=== PATIENT | female | born 2000 | race American Indian/Alaskan Native ===

== ENCOUNTER 2018-06-25 13:43 | Inpatient (IN) | payer SELFPAY ==
[2018-06-25 14:59] LABS: Basophils % (Auto) 0.6 % (0.0-1.8); Eosinophils # (Auto) 0.1 K/mm3 (0.0-0.4); Eosinophils % (Auto) 2.3 % (0.0-4.3); Hematocrit 43.9 % (30.3-42.9); Hemoglobin 14.5 gm/dl (10.1-14.3); Lymphocytes # (Auto) 1.1 K/mm3 (1.2-5.4); Lymphocytes % (Auto) 38.4 % (13.4-35.0); Mean Corpuscular HGB Conc 33 % (30-34); Mean Corpuscular Hemoglobin 30 pg (28-32); Mean Corpuscular Volume 90 fl (79-97); Monocytes # (Auto) 0.3 K/mm3 (0.0-0.8); Monocytes % (Auto) 9.7 % (0.0-7.3); Platelet Count 238 K/mm3 (140-440); Red Blood Count 4.91 M/mm3 (3.65-5.03); Red Cell Distribution Width 14.7 % (13.2-15.2)
[2018-06-25 15:14] LABS: Bilirubin,Urine NEG (Negative); Blood,Urine SM (Negative); Color,Urine Yellow (Yellow); Mucus,Urine FEW /HPF; Urobilinogen,Urine < 2.0 mg/dL (<2.0)
[2018-06-25 15:18] LABS: HCG Qualitative,Urine Negative (Negative)
[2018-06-25 15:30] LABS: Alanine Aminotransferase 11 units/L (7-56); Albumin 4.5 g/dL (3.9-5); BUN/Creatinine Ratio 14; Blood Urea Nitrogen 10 mg/dL (7-17); Calcium 9.1 mg/dL (8.4-10.2); Hemolysis Index 13
--- NOTE | 2018-06-25 18:19 | Emergency Department Report ---
ED Headache HPI - General Chief Complaint: Eye Problems Stated Complaint: OPTIC NERVE SWELLING Time Seen by Provider: 06/25/18 17:34 Source: patient Exam Limitations: no limitations - History of Present Illness Initial Comments: 17 year old female with no significant past medical history presents complaining of headaches and bilateral eye pain 1 week. Patient has pain behind both eyes which is fairly constant but decreased in intensity after taking ibuprofen. Patient also wears corrective lenses and states for several weeks her vision has been decreasing. She saw an sintering press operator today. She presents with the paperwork stating that she has optic nerve edema to both eyes , decreased color vision, with vision OD 20/20 OS 20/30. She was sent to the ER due's concerns of headache in the setting of papilledema. Patient states headache is rated 6/10 in intensity currently she does not require any pain medication. She denies nausea, vomiting, focal weakness, focal numbness, or light sensitivity. She has not had history of headaches prior to this week. Allergies/Adverse Reactions: Allergies No Known Allergies Allergy (Verified 06/25/18 14:38) Home Medications: Ambulatory Orders No Known Home Medications [No Reported Home Medications] 06/25/18 ED Review of Systems ROS: Stated complaint: OPTIC NERVE SWELLING Other details as noted in HPI Comment: All other systems reviewed and negative ED Past Medical Hx - Past Medical History Previous Medical History?: No - Surgical History Past Surgical History?: No - Social History Smoking Status: Never Smoker Substance Use Type: None - Medications Home Medications: Home Medications Medication Instructions Recorded Confirmed Last Taken Type No Known Home Medications [No 06/25/18 06/25/18 Unknown History Reported Home Medications] ED Physical Exam - General Limitations: No Limitations - Other Other exam information: General: No limitations, patient is alert in no acute distress Head exam: Atraumatic, normocephalic Eyes exam: Normal appearance, pupils equal reactive to light, extraocular movements intact ENT: Moist mucous membrane Neck exam: Normal inspection, full range of motion, no meningismus nontender Respiratory exam: Clear to auscultation bilateral, no wheezes, rales, crackles Cardiovascular: Normal rate and rhythm, normal heart sounds Abdomen: Soft, nondistended, and nontender, with normal bowel sounds, no rebound, or guarding Extremity: Full range of motion normal inspection no deformity Back: Normal Inspection, full range of motion, no tenderness Neurologic: Alert, oriented x3, cranial nerves intact, no motor or sensory deficit, [id number] function intact Psychiatric: normal affect, normal mood Skin: Warm, dry, intact ED Course Vital Signs 06/25/18 06/25/18 14:39 20:59 Temperature 98.3 F 98.6 F Pulse Rate 79 84 Respiratory 16 16 Rate Blood Pressure 119/60 Blood Pressure 103/66 [Right] O2 Sat by Pulse 100 Oximetry - Consultations Consultation #1: 06/25/18 19:42 case d/w Dr Glover with tele neuro. States pt needs admission for MRI, Interventional radiology or neuro LP for pressure measurement and therapeutic drainage if elevated. Diamox if need. She states this can be done tomorrow and she does not need a stat MRI tonight. MRI is not available tonight but is available tomorrow 8a-12p. Pt will be admitted for further workup ED Medical Decision Making - Lab Data Result diagrams: 06/25/18 14:46 06/25/18 14:46 Lab Results 06/25/18 06/25/18 06/25/18 Range/Units 14:46 14:46 14:57 WBC 2.9 L (4.5-11.0) K/mm3 RBC 4.91 (3.65-5.03) M/mm3 Hgb 14.5 H (10.1-14.3) gm/dl Hct 43.9 H (30.3-42.9) % MCV 90 (79-97) fl MCH 30 (28-32) pg MCHC 33 (30-34) % RDW 14.7 (13.2-15.2) % Plt Count 238 (140-440) K/mm3 Lymph % (Auto) 38.4 H (13.4-35.0) % [place] % (Auto) 9.7 H (0.0-7.3) % Eos % (Auto) 2.3 (0.0-4.3) % Baso % (Auto) 0.6 (0.0-1.8) % Lymph # 1.1 L (1.2-5.4) K/mm3 [place] # 0.3 (0.0-0.8) K/mm3 Eos # 0.1 (0.0-0.4) K/mm3 Baso # 0.0 (0.0-0.1) K/mm3 Seg Neutrophils % 49.0 (40.0-70.0) % Seg Neutrophils # 1.4 L (1.8-7.7) K/mm3 Sodium 141 (137-145) mmol/L Potassium 4.0 (3.6-5.0) mmol/L Chloride 104.4 (98-107) mmol/L Carbon Dioxide 25 (22-30) mmol/L Anion Gap 16 mmol/L BUN 10 (7-17) mg/dL Creatinine 0.7 (0.7-1.2) mg/dL Estimated GFR > 60 ml/min BUN/Creatinine Ratio 14 % Glucose 100 (65-100) mg/dL Calcium 9.1 (8.4-10.2) mg/dL Total Bilirubin < 0.20 (0.1-1.2) mg/dL AST 16 (5-40) units/L ALT 11 (7-56) units/L Alkaline Phosphatase 55 (35-129) units/L Total Protein 8.1 (6.3-8.2) g/dL Albumin 4.5 (3.9-5) g/dL Albumin/Globulin Ratio 1.3 % Urine Color Yellow (Yellow) Urine Turbidity Clear (Clear) Urine pH 5.0 (5.0-7.0) Ur Specific [place] 1.029 (1.003-1.030) Urine Protein 30 mg/dl (Negative) mg/dL Urine Glucose (UA) Neg (Negative) mg/dL Urine Ketones Neg (Negative) mg/dL Urine Blood Sm (Negative) Urine Nitrite Neg (Negative) Urine Bilirubin Neg (Negative) Urine Urobilinogen < 2.0 (<2.0) mg/dL Ur Leukocyte Esterase Neg (Negative) Urine WBC (Auto) 2.0 (0.0-6.0) /HPF Urine RBC (Auto) 2.0 (0.0-6.0) /HPF U Epithel Cells (Auto) 2.0 (0-13.0) /HPF Urine Mucus Few /HPF Urine HCG, Qual Negative (Negative) - Radiology Data Radiology results: report reviewed ct head: naf, mild sinusitis - Medical Decision Making deshpande x 1 week with b/l papillary edema case d/w neuro admission for MRI plus diagnosist/therapeutic LP +/- Diamox depending on findings hospitalist informed for admission at 9:15 upon call back - Differential Diagnosis pseudotumor cerebral, migraines, MS Critical Care Time: No Critical care attestation.: If time is entered above; I have spent that time in minutes in the direct care of this critically ill patient, excluding procedure time. ED Disposition Clinical Impression: Headache, Papilledema Disposition: OP ADMIT IP TO THIS HOSP Is pt being admited?: Yes Condition: Stable Time of Disposition: 20:40 (hospitalist)
--- NOTE | 2018-06-25 19:04 | Cat Scan Report ---
FINAL REPORT PROCEDURE: CT head without contrast. TECHNIQUE: Computerized tomography of the head was performed without contrast material. HISTORY: Headache, optic nerve edema. COMPARISON: No prior studies are available for comparison. FINDINGS: The ventricles are normal in size. The heredia matter and white matter appear normal. There is a dilated perivascular space of [place] near the right basal ganglia. There are no mass lesions. There is no intracranial hemorrhage. The calvarium appears intact. The mastoid air cells are clear. There is mucosal thickening in a right posterior ethmoid air cell. There is mucosal thickening in the left sphenoid sinus. IMPRESSION: Normal study of the brain. Mild sinusitis as described.
[2018-06-25] MEDS ORDERED: ZOFRAN IV PRN (22:02)
[2018-06-25] MEDS ORDERED: TYLENOL PO PRN (22:02)
[2018-06-25] MEDS: MORPHINE IV PRN (23:29)
[2018-06-26 08:19] LABS: Hematocrit 41.9 % (30.3-42.9); Hemoglobin 13.7 gm/dl (10.1-14.3); Mean Corpuscular HGB Conc 33 % (30-34); Mean Corpuscular Hemoglobin 29 pg (28-32); Mean Corpuscular Volume 90 fl (79-97); Platelet Count 213 K/mm3 (140-440); Red Blood Count 4.67 M/mm3 (3.65-5.03); Red Cell Distribution Width 14.3 % (13.2-15.2)
--- NOTE | 2018-06-26 09:12 | Event Note ---
Date: 06/26/18 Lumbar punctures are performed by diagnostic radiology. An order was placed so that diagnostic radiology can perform a lumbar puncture.
--- NOTE | 2018-06-26 10:22 | History and Physical Report ---
CHIEF COMPLAINT: Headache. Other complaint includes visual impairment. HISTORY OF PRESENT ILLNESS: The patient is a 17-year-old female who stated she has been having headache that is located mainly behind the eyes going on for about 1 week and the patient stated that she has also been having visual impairment since the headache started and the headache responds to ibuprofen but does not get greatly resolved. The patient went to see an chip tuner yesterday prior to coming to the Emergency Room and came with a paperwork stating that she has optic nerve edema in both eyes and was told to go to the Emergency Room for evaluation of her headache. There is no history of numbness, no history of dizziness, and no history of nausea or vomiting. Also, there is no history of weakness of any part of the limb. The patient states she has not had any headache prior to the onset of these symptoms. There is no history of nasal congestion. PAST MEDICAL HISTORY: Unremarkable. PAST SURGICAL HISTORY: Noncontributory. FAMILY HISTORY: Noncontributory. SOCIAL HISTORY: The patient does not smoke, does not drink alcohol, and does not use illicit drugs. MEDICATIONS: Other than [id number] ibuprofen, the patient is not on any home medications. ALLERGIES: There are no known drug allergies. REVIEW OF SYSTEMS: CONSTITUTIONAL: There is no fever, no chills, no diaphoresis. HEENT: There is headache, but no sore throat. CARDIOVASCULAR SYSTEM: There is no chest pain or orthopnea. RESPIRATORY SYSTEM: There is no shortness of breath or cough. GASTROINTESTINAL SYSTEM: There is no nausea, no vomiting, no abdominal pain, diarrhea or constipation. NEUROLOGICAL SYSTEM: There is no numbness, no dizziness, no altered mental status, but there is visual impairments with decreased visual acuity. MUSCULOSKELETAL SYSTEM: There is no joint pain or swelling. DERMATOLOGICAL SYSTEM: There is no skin rash or itching. GENITOURINARY SYSTEM: There is no dysuria, hematuria, or flank pain. Rest of system review is normal. PHYSICAL EXAMINATION: GENERAL: At the time of exam, the patient was found to be alert, oriented x 3, and not in acute distress. VITAL SIGNS: At the time of presentation showed temperature of 98.3 degrees Fahrenheit, pulse of 79, respirations 16, blood pressure 119/60, O2 sat of 100% on room air. HEENT: Shows pupils to be equal, round, and reactive to light and accommodating. Extraocular muscles are intact. NECK: Supple with no JVD or carotid bruit. CARDIOVASCULAR SYSTEM: Shows normal first and second heart sounds with no gallops or murmurs. RESPIRATORY SYSTEM: Shows good air entry on both sides of the lungs with no abnormal breath sounds. GASTROINTESTINAL SYSTEM: Shows abdomen to be full, soft, nontender with no organomegaly or rigidity. NEUROLOGIC: Shows no focal deficit. MUSCULOSKELETAL SYSTEM: Shows no joint swelling or tenderness. DERMATOLOGICAL SYSTEM: Shows no skin rash. GENITOURINARY SYSTEM: Showing no costovertebral angle tenderness. PERTINENT LABORATORY AND IMAGING STUDIES: The patient had CT of the head without contrast done that shows normal study of the brain with mild sinusitis found. The patient's lab results show CBC with low white count of 2.9, elevated hemoglobin of 14.5, and elevated hematocrit of 43.9 with normal MCV. CBC differential shows high lymphocyte count of 38.4 with high monocyte count of 9.7%. The patient's chemistry was unremarkable. Urinalysis was unremarkable. Urine test came back negative. DIAGNOSES: 1. Headache, to rule out pseudotumor cerebri. 2. Leukopenia. PLAN: 1. The patient will be admitted to medical floor. 2. The patient will have MRI of the brain without contrast as requested by the tele neurologist. 3. The patient will have interventional radiology consult with Dr. Shannan Lai for lumbar puncture to rule out pseudotumor cerebri. 4. The patient will be on regular diet and will have CBC repeated this morning to follow up on the leukopenia. 5. The patient will be on Tylenol 650 mg by mouth every 4 hours as needed for headache and will be on IV morphine 2 mg every 4 hours as needed for headache and pain and also will be on IV Zofran 4 mg every 8 hours as needed for nausea and vomiting. JOB# [id number] OCN/NTS
[2018-06-26] MEDS: MORPHINE IV PRN (11:00)
[2018-06-26 12:50] VITALS: BP 100/64
--- NOTE | 2018-06-26 13:05 | Progress Note ---
Assessment and Plan Assessment and plan: Patient is a 17 old female presenting with 1 week of bilateral eye pain for about 1 week and was sent to the ED by adult nurse practitioner for finding of optic nerve edema in both eyes with decreased color vision, vision OD 20/20 OS 20/30and headache. Patient wears corrective lenses and states for several weeks her vision has been decreasing and reports improvement in headache with ibuprofen. Headache with papilledema ?Optic nerve edema Leukopenia Plan supportive care awaiting MRI and Lumber puncture. Consult neurology Diamox or steroids if ok with Neurology Will need opthalmology eval DVT/GI prophy Discussed with patient and family History Interval history: Patient seen and examined today, resting comfortably with no acute distress. Denies blurry vision. still with 3/10 headache not the worse headach of her life. no thunderclap. no photophobia or phonophobia Hospitalist Physical - Physical exam Narrative exam: VITAL SIGNS: Reviewed. GENERAL: The patient appeared well nourished and normally developed. Vital signs as documented. HEAD: No signs of head trauma. EYES: Pupils are equal. Extraocular motions intact. No proptosis, no sinus tenderness EARS: Hearing grossly intact. MOUTH: Oropharynx is normal. NECK: No adenopathy, no JVD. CHEST: Chest with clear breath sounds bilaterally. No wheezes, rales, or rhonchi. CARDIAC: Regular rate and rhythm. S1 and S2, without murmurs, gallops, or rubs. VASCULAR: No Edema. Peripheral pulses normal and equal in all extremities. ABDOMEN: Soft, without detectable tenderness. No sign of distention. No rebound or guarding, and no masses palpated. Bowel Sounds normal. MUSCULOSKELETAL: Good range of motion of all major joints. Extremities without clubbing, cyanosis or edema. NEUROLOGIC EXAM: Alert and oriented x 3. No focal sensory or strength deficits. Speech normal. Follows commands. PSYCHIATRIC: Mood normal. SKIN: No rash or lesions excet multiple piercing and hardware. - Constitutional Vitals: Temp Pulse Resp BP Pulse Ox 98.5 F 83 18 100/64 99 06/26/18 12:03 06/26/18 12:03 06/26/18 12:03 06/26/18 12:03 06/26/18 12:03 Results - Labs CBC & Chem 7: 06/26/18 06:33 06/25/18 14:46 Labs: Laboratory Last Values WBC 3.2 K/mm3 (4.5-11.0) L 06/26/18 06:33 RBC 4.67 M/mm3 (3.65-5.03) 06/26/18 06:33 Hgb 13.7 gm/dl (10.1-14.3) 06/26/18 06:33 Hct 41.9 % (30.3-42.9) 06/26/18 06:33 MCV 90 fl (79-97) 06/26/18 06:33 MCH 29 pg (28-32) 06/26/18 06:33 MCHC 33 % (30-34) 06/26/18 06:33 RDW 14.3 % (13.2-15.2) 06/26/18 06:33 Plt Count 213 K/mm3 (140-440) 06/26/18 06:33 Lymph % (Auto) 38.4 % (13.4-35.0) H 06/25/18 14:46 [place] % (Auto) 9.7 % (0.0-7.3) H 06/25/18 14:46 Eos % (Auto) 2.3 % (0.0-4.3) 06/25/18 14:46 Baso % (Auto) 0.6 % (0.0-1.8) 06/25/18 14:46 Lymph # 1.1 K/mm3 (1.2-5.4) L 06/25/18 14:46 [place] # 0.3 K/mm3 (0.0-0.8) 06/25/18 14:46 Eos # 0.1 K/mm3 (0.0-0.4) 06/25/18 14:46 Baso # 0.0 K/mm3 (0.0-0.1) 06/25/18 14:46 Seg Neutrophils % 49.0 % (40.0-70.0) 06/25/18 14:46 Seg Neutrophils # 1.4 K/mm3 (1.8-7.7) L 06/25/18 14:46 Sodium 141 mmol/L (137-145) 06/25/18 14:46 Potassium 4.0 mmol/L (3.6-5.0) 06/25/18 14:46 Chloride 104.4 mmol/L (98-107) 06/25/18 14:46 Carbon Dioxide 25 mmol/L (22-30) 06/25/18 14:46 Anion Gap 16 mmol/L 06/25/18 14:46 BUN 10 mg/dL (7-17) 06/25/18 14:46 Creatinine 0.7 mg/dL (0.7-1.2) 06/25/18 14:46 Estimated GFR > 60 ml/min 06/25/18 14:46 BUN/Creatinine Ratio 14 % 06/25/18 14:46 Glucose 100 mg/dL (65-100) 06/25/18 14:46 Calcium 9.1 mg/dL (8.4-10.2) 06/25/18 14:46 Total Bilirubin < 0.20 mg/dL (0.1-1.2) 06/25/18 14:46 AST 16 units/L (5-40) 06/25/18 14:46 ALT 11 units/L (7-56) 06/25/18 14:46 Alkaline Phosphatase 55 units/L (35-129) 06/25/18 14:46 Total Protein 8.1 g/dL (6.3-8.2) 06/25/18 14:46 Albumin 4.5 g/dL (3.9-5) 06/25/18 14:46 Albumin/Globulin Ratio 1.3 % 06/25/18 14:46 Urine Color Yellow (Yellow) 06/25/18 14:57 Urine Turbidity Clear (Clear) 06/25/18 14:57 Urine pH 5.0 (5.0-7.0) 06/25/18 14:57 Ur Specific [place] 1.029 (1.003-1.030) 06/25/18 14:57 Urine Protein 30 mg/dl mg/dL (Negative) 06/25/18 14:57 Urine Glucose (UA) Neg mg/dL (Negative) 06/25/18 14:57 Urine Ketones Neg mg/dL (Negative) 06/25/18 14:57 Urine Blood Sm (Negative) 06/25/18 14:57 Urine Nitrite Neg (Negative) 06/25/18 14:57 Urine Bilirubin Neg (Negative) 06/25/18 14:57 Urine Urobilinogen < 2.0 mg/dL (<2.0) 06/25/18 14:57 Ur Leukocyte Esterase Neg (Negative) 06/25/18 14:57 Urine WBC (Auto) 2.0 /HPF (0.0-6.0) 06/25/18 14:57 Urine RBC (Auto) 2.0 /HPF (0.0-6.0) 06/25/18 14:57 U Epithel Cells (Auto) 2.0 /HPF (0-13.0) 06/25/18 14:57 Urine Mucus Few /HPF 06/25/18 14:57 Urine HCG, Qual Negative (Negative) 06/25/18 14:57 - Imaging and Cardiology CT Scan - head: image reviewed (negative) MRI - head: pending
--- NOTE | 2018-06-26 15:25 | Magnetic Resonance Report ---
FINAL REPORT PROCEDURE: MR BRAIN WO CON TECHNIQUE: Magnetic resonance imaging of the brain was performed without contrast material. HISTORY: HEADACHE WITH PAPLLIEDEMA COMPARISON: No prior studies are available for comparison. FINDINGS: There is no evidence of intracranial hemorrhage. No parenchymal hemorrhage, mass lesions or mass effect are identified. Normal heredia-white matter differentiation is seen. The ventricles are normal size and are midline. No abnormal extra-axial fluid collections or masses are identified. The corpus callosum, region of the pituitary fossa and foramen magnum show no abnormalities. There is a nodular density in the anterior aspect of the left sphenoid sinus measuring 1.3 x 0.7 centimeters suggesting a polyp or mucous retention cyst. There also nodular mucosal thickening inferiorly in the right maxillary sinus and posteriorly in the left maxillary sinus. There opacification of one of the posterior ethmoid air cells on the right. Paranasal sinuses otherwise are clear. Mastoid air cells are clear. IMPRESSION: Negative MRI of the brain. Paranasal sinus disease as described above.
--- NOTE | 2018-06-26 16:14 | Progress Note ---
Subjective Date of service: 06/26/18 Interval history: hx of worsening headaches and recently told she had palpilledema by community support specialist the MRI does not confirm this recommend vasculitis w/u Thanks Objective - Vital Sign Vital Signs - 12hr 06/26/18 06/26/18 06:21 12:03 Temperature 98.5 F 98.5 F Pulse Rate 70 83 Respiratory 18 18 Rate Blood Pressure 89/47 100/64 O2 Sat by Pulse 100 99 Oximetry - Laboratory Findings CBC and BMP: 06/26/18 06:33 06/25/18 14:46 Abnormal Lab Findings: Abnormal Labs 06/25/18 06/26/18 14:46 06:33 WBC 2.9 L 3.2 L Hgb 14.5 H Hct 43.9 H Lymph % (Auto) 38.4 H [place] % (Auto) 9.7 H Lymph # 1.1 L Seg Neutrophils # 1.4 L
== END 2018-06-26 18:05 | disposition home or self-care (01) | DRG 125 ==
LOC: ED 13:43 → 3A 21:58
PROVIDERS: ADMIT Internal Medicine; ATTEND Internal Medicine
DX: H57.13 Ocular pain, bilateral (principal); R51 Headache; D72.819 Decreased white blood cell count, unspecified
CPT/HCPCS: 36415; 70450; 70551; 80053; 81001; 81025; 85025; 85027; 96374; J2270